=== PATIENT | male | born 1950 | race Caucasian/White ===

== ENCOUNTER 2018-04-15 17:47 | Inpatient (IN) | payer MEDICARE ==
[~2018-04-15] VITALS: Ht 167.6 cm; Wt 88.5 kg
--- NOTE | 2018-04-15 17:45 | NUR ---
Pt was brought in by private ambulance from [facility] ER where the patient was already medically cleared and placed on a 5150 Hold. the ER physician on duty at this time reviewed the transfer paperwork and stated the patient may be directly admitted to [facility] as there is no need for further tests.
[2018-04-15 18:00] VITALS: BP 160/85
[2018-04-15] MEDS ORDERED: ACETAMINOPHEN 325 MG TABLET PO PRN (18:15)
[2018-04-15] MEDS ORDERED: LORA-259 PO (18:20)
[2018-04-15] MEDS ORDERED: AMLO5TAB4 PO (18:20)
[2018-04-15] MEDS ORDERED: OXYC30TA2 PO (18:20)
[2018-04-15] MEDS ORDERED: MAG HYDROX/AL HYDROX/SIMETH 30 ML LIQUID UDC PO PRN (21:00)
[2018-04-15] MEDS ORDERED: MAGNESIUM HYDROXIDE 30 ML LIQUID UDC PO PRN (21:00)
[2018-04-15] MEDS: LORAZEPAM 1 MG TABLET PO PRN (21:11)
[2018-04-15] MEDS ORDERED: HYDROCODONE/APAP 10-325 MG TABLET PO PRN (21:15)
--- NOTE | 2018-04-15 21:28 | NUR ---
GPS: Pt.refused to have his vital signs taken especially his B/P despite explanation of importance. Reminded pt.that during admission earlier his B/P was elevated. Pt.continues to refuse. Also refusing Lopressor 25mg one time dose now. Pt.is guarded,uncooperative,refuses to interact with staff and easily irritable. Pt.insisting also that he takes 2mg of Ativan at home for anxiety but was explained to him that his order here in the hosp.is only 1 mg. Pt.decided to take Ativan 1mg as ordered. Safety emphasized.
[2018-04-15] MEDS ORDERED: METOPROLOL TARTRATE 25 MG TABLET PO ONE (21:30)
--- NOTE | 2018-04-15 23:45 | NUR ---
GPS: Noted pt.to be asleep at this time and undressed himself totally. Pt.was covered with a blanket for privacy.
--- NOTE | 2018-04-16 06:30 | NUR ---
GPS: Pt.refused blood works ordered for this morning despite explanation of importance. Pt.is easily irritable and prefers to be left alone at this time.
[2018-04-16] MEDS: AMLODIPINE 5 MG TABLET PO SCH ×3 (09:00→17:20)
[2018-04-16] MEDS: METOPROLOL TARTRATE 25 MG TABLET PO SCH ×3 (09:00→17:20)
[2018-04-16] MEDS: LORAZEPAM 1 MG TABLET PO PRN ×2 (10:03→13:19)
[2018-04-16 10:30] VITALS: BP 156/69
[2018-04-16 16:09] VITALS: BP 136/71
[2018-04-16] MEDS: CLONAZEPAM 0.5 MG TABLET PO SCH (17:20)
[2018-04-16 20:00] VITALS: BP 130/86
[2018-04-16] MEDS ORDERED: TRAZODONE 50 MG TABLET PO SCH (21:00)
[2018-04-16] MEDS: TEMAZEPAM 7.5 MG CAPSULE PO PRN (23:53)
[2018-04-17 00:16] LABS: *BILIRUBIN,URIN NEGATIVE (NEGATIVE); *BLOOD, URINE NEGATIVE (NEGATIVE); *CLARITY,URINE CLEAR (CLEAR); *COLOR,URINE YELLOW (YELLOW); *KETONES,URINE NEGATIVE (NEGATIVE); *PROTEIN,URINE NEGATIVE (NEGATIVE); *UROBILINOGEN,URINE 0.2 E.U./dl (NORMAL); LEUKOCYTE ESTERASE ,URINE NEGATIVE (NEGATIVE); NITRITE, URINE NEGATIVE (NEGATIVE); PH,URINE 5.5 (5.0-8.0); UGLUCOSE NEGATIVE (NEGATIVE)
[2018-04-17 00:32] LABS: BACTERIA,URINE NONE SEEN /HPF (NONE SEEN); RBC,URINE 0-3 /HPF (0-3); SQUAMOUS EPITHELIAL CELL,UR FEW /HPF (NONE SEEN); WBC,URINE 0-3 /HPF (0-3)
[2018-04-17 00:33] LABS: MUCUS,URINE FEW /LPF (0-FEW); TRANSITIONAL EPI CELLS,URINE FEW /LPF (NONE SEEN); URINE AMORPHOUS URATE FEW /HPF
[2018-04-17] MEDS: LORAZEPAM 1 MG TABLET PO PRN ×3 (05:54→22:00)
[2018-04-17 07:09] LABS: BASOPHILS # (AUTO) 0.1 K/uL (0.0-8.0); BASOPHILS % (AUTO) 1.3 % (0.0-2.0); EOSINOPHILS % (AUTO) 0.5 % (0.0-7.0); HEMATOCRIT 38.3 % (36.7-47.1); HEMOGLOBIN 12.7 g/dL (12.5-16.3); LYMPHOCYTES # (AUTO) 1.3 K/uL (20.0-40.0); MEAN CORPUSCULAR HEMOGLOBIN 27.8 uug (23.8-33.4); MEAN CORPUSCULAR HGB CONC 33 g/dL (32.5-36.3); MONOCYTES # (AUTO) 0.8 K/uL (2.0-10.0); MONOCYTES % (AUTO) 12.2 % (0.0-11.0); NEUTROPHILS # (AUTO) 4.1 K/uL (1.8-8.9); PLATELET COUNT (AUTO) 284 K/uL (152-348); RED BLOOD CELL COUNT(AUTO) 4.56 MIL/uL (4.06-5.63); WHITE BLOOD COUNT (AUTO) 6.3 K/uL (3.6-10.2)
[2018-04-17 07:23] LABS: BILIRUBIN,TOTAL 0.5 mg/dL (0.2-1.0); CREATININE 0.8 mg/dL (0.6-1.3); MAGNESIUM 1.9 mg/dL (1.8-2.4); PHOSPHOROUS 2.5 mg/dL (2.5-4.9); POTASSIUM 3.3 mmol/L (3.5-5.1); TOTAL PROTEIN, SERUM 7.1 g/dL (6.4-8.2)
[2018-04-17 07:30] VITALS: BP 130/67
[2018-04-17 07:55] LABS: THYROID STIMULATING HORMONE 0.327 mIU/mL (0.358-3.740)
--- NOTE | 2018-04-17 08:30 | NUR ---
Pt.in bed A/A/Ox3,no s/s of distress,denies pain @ time.
[2018-04-17] MEDS: CLONAZEPAM 0.5 MG TABLET PO SCH ×3 (08:32→17:00)
[2018-04-17] MEDS: METOPROLOL TARTRATE 25 MG TABLET PO SCH ×2 (08:33→17:02)
[2018-04-17] MEDS: AMLODIPINE 5 MG TABLET PO SCH ×2 (08:33→17:02)
[2018-04-17] MEDS ORDERED: DEXTROSE 50% 50 ML DISP.SYRIN IV PRN (10:30)
[2018-04-17] MEDS ORDERED: POTASSIUM CHLORIDE 20 MEQ TAB.PRT.SR PO ONE (10:30)
[2018-04-17] MEDS: BLOOD SUGAR DIAGNOSTIC 1 EACH STRIP VI SCH ×3 (11:46→20:03)
[2018-04-17 15:37] VITALS: BP 134/72
--- NOTE | 2018-04-17 15:37 | NUR ---
Initial Discharge Instructions: Patient was living in his friend, Lluvia, apartment prior to his hospitalization. Spoke with Nurys ([phone]) who reports that the patient cannot return to her place of residence when he is ready for discharge. Nurys refused to provide her address to this law writer. Per pt, he would like to return to his home in [place] when he is ready for discharge. CLAUDINE will speak with pt's friend, Scott ([phone]). CLAUDINE will collaborate with pt and MD regarding most appropriate discharge plans for this patient. SW will form a safe and proper discharge plan.
--- NOTE | 2018-04-17 17:07 | NUR ---
Pt.refuse from [facility],protesting that was placed on 14 days hold,but was agree to take meds.
[2018-04-17] MEDS: TRAZODONE 100 MG TABLET PO SCH (20:03)
[2018-04-17] MEDS: ATORVASTATIN 10 MG TABLET PO SCH (20:03)
[2018-04-18] MEDS: TEMAZEPAM 7.5 MG CAPSULE PO PRN ×2 (02:02→23:35)
--- NOTE | 2018-04-18 06:28 | NUR ---
GPS: Pt.refused to have blood sugar check at this time despite explanation of importance. Continues to feel depressed,irritable and guarded. Safety emphasized. Will continue to monitor.
[2018-04-18] MEDS: BLOOD SUGAR DIAGNOSTIC 1 EACH STRIP VI SCH ×4 (06:34→20:05)
[2018-04-18] MEDS: CLONAZEPAM 0.5 MG TABLET PO SCH ×3 (08:42→17:23)
[2018-04-18] MEDS: METOPROLOL TARTRATE 25 MG TABLET PO SCH ×2 (08:42→17:00)
[2018-04-18] MEDS: AMLODIPINE 5 MG TABLET PO SCH ×2 (08:42→17:00)
--- NOTE | 2018-04-18 10:18 | NUR ---
Discharge Planning Note: SW met with patient at bedside to discuss discharge planning. Informed the patient that his passport was here in the hospital and that SW received call from pt's friend Scott ([phone]) who states he has the rest of patient's belongings at his home. Patient aware. Patient reports that he would like to return to [place] upon discharge, and will pay for a taxi to get to [facility]. Patient plans to go to the hospital in [facility] where he has been treated several times in the past to "continue getting help" there. Patient reports he will contact his friend Scott to begin the process. CLAUDINE will continue to follow-up with pt and MD regarding a safe and proper discharge plan. Addendum: 04/18/18 at 1334 by GREGORY COHEN At 1300, CLAUDINE met with pt and friend Scott at bedside to discuss discharge planning. Pt's friend made aware of patient's plan to go to [place] post-discharge. Per friend, he will get in touch with pt's friend, Juan, in [place] to help facilitate transportation from airport in [facility] to the hospital. Pt agreeable. CLAUDINE will continue to follow-up and provide support to ensure a safe DC plan.
--- NOTE | 2018-04-18 16:09 | NUR ---
Discharge planning: During Pt discharge, Pt's personal medications, which were noted on Pt belongings log, could not be located. Pt became very anxious and upset over this issue. Meds were later located and given to Pt. Mental Health [employer]r, Salo Vasquez, was notified and an investigation will be taking place. Addendum: 04/19/18 at 0815 by ANKITA CHOW cut off worker entered note in wrong patient's chart.
[2018-04-18] MEDS: TRAZODONE 100 MG TABLET PO SCH (20:01)
[2018-04-18] MEDS: ATORVASTATIN 10 MG TABLET PO SCH (20:01)
[2018-04-18] MEDS: LORAZEPAM 1 MG TABLET PO PRN (22:00)
[2018-04-19] MEDS: LORAZEPAM 1 MG TABLET PO PRN (03:27)
[2018-04-19] MEDS: BLOOD SUGAR DIAGNOSTIC 1 EACH STRIP VI SCH ×4 (06:37→20:37)
[2018-04-19 07:30] VITALS: BP 169/100
[2018-04-19] MEDS: CLONAZEPAM 0.5 MG TABLET PO SCH ×3 (08:32→16:58)
[2018-04-19] MEDS: AMLODIPINE 5 MG TABLET PO SCH ×2 (08:33→16:58)
[2018-04-19] MEDS: METOPROLOL TARTRATE 25 MG TABLET PO SCH ×2 (08:33→16:58)
[2018-04-19 09:45] VITALS: BP 151/88
[2018-04-19] MEDS: INSULIN REGULAR, HUMAN 300 UNIT/3 ML VIAL SQ PRN (12:59)
--- NOTE | 2018-04-19 14:48 | NUR ---
Activity Group Note: Patients engaged in a [employer] activity where they were shown pictures and asked to tell a story about the picture or express how the picture made them feel. Patients were encouraged to reference their other senses such as smell, taste, hear, etc. Subjective: "I want to keep looking at pictures." Objective: Made good eye contact, sat forward in his seat, shared picture with others in group. Assessment: Patient seemed engaged in the activity. Patient's thought process was linear and goal-directed. Patient seemed able to relate pictures shown to his own life and to other works of art he has encountered. Patient encouraged other members of group to engage in activity as well. Plan: Continue to encourage attendance in activity groups as scheduled.
[2018-04-19 16:05] VITALS: BP 150/87
--- NOTE | 2018-04-19 17:55 | NUR ---
GERD IS CALM AND COOPERATIVE AT THIS TIME. SITTING IN FRONT OF THE NURSES' STATION HAVING CONVERSATION WITH NURSES. GERD HAD MENTIONED THAT UPON DISCHARGE, HE WANTS TO HAVE A TAXI VOUCHER TO GET TO HIS FRIENDS' HOUSE IN [place]. WILL CONTINUE TO MONITOR.
[2018-04-19 19:31] VITALS: BP 135/85
[2018-04-19] MEDS: ATORVASTATIN 10 MG TABLET PO SCH (20:36)
[2018-04-19] MEDS: TRAZODONE 100 MG TABLET PO SCH (20:36)
[2018-04-19] MEDS ORDERED: TRAZODONE 50 MG TABLET PO ONE (20:45)
[2018-04-19] MEDS: LOPERAMIDE HCL 2 MG CAPSULE PO PRN (20:53)
--- NOTE | 2018-04-19 21:30 | NUR ---
received to care, lying in bed, isolative, but pleasant upon approach. compliant with medications and staff direction. continues to deny suicidal ideation, or the desire to harm self. PRN immodium was given earlier, due to having multiple episodes of diarrhea throughout the calixto. stool specimen was collected, and sent to the lab. as of 2129, he remains in bed. no distress noted. will continue to monitor closely.
[2018-04-19] MEDS: TEMAZEPAM 7.5 MG CAPSULE PO PRN (22:00)
--- NOTE | 2018-04-19 22:00 | NUR ---
PRN restoril given, for insomnia. pt reports no further episodes of loose stools, or diarrhea.
[2018-04-20] MEDS: LORAZEPAM 1 MG TABLET PO PRN (02:48)
[2018-04-20] MEDS: BLOOD SUGAR DIAGNOSTIC 1 EACH STRIP VI SCH ×4 (07:24→20:29)
[2018-04-20 07:30] VITALS: BP 136/70
[2018-04-20] MEDS: CLONAZEPAM 0.5 MG TABLET PO SCH ×3 (08:40→17:52)
[2018-04-20] MEDS: METOPROLOL TARTRATE 25 MG TABLET PO SCH ×2 (08:41→17:53)
[2018-04-20] MEDS: AMLODIPINE 5 MG TABLET PO SCH ×2 (08:41→17:53)
[2018-04-20] MEDS: LOPERAMIDE HCL 2 MG CAPSULE PO PRN ×2 (12:01→21:00)
[2018-04-20 12:02] VITALS: BP 136/70
[2018-04-20 16:04] VITALS: BP 121/72
--- NOTE | 2018-04-20 19:45 | NUR ---
RECEIVED PATIENT IN THE DAY ROOM. HE IS NOTED A/O X 4 ABLE TO AMBULATE WITH STEADY GAIT AND ABLE TO MAKE HIS NEEDS KNOWN. PATIENT PRESENTS IS NOTED PLEASANT AND COOPERATIVE. DENIES AV/VH. DENIES SI AND HE IS ABLE TO CFS. HE IS AWARE OF INCOMING DISCHARGED. GOOD INSIGHT AND JUDGMENT NOTED. PATIENT ABLE TO VERBALIZED FEELINGS. SAFETY EMPHASIS. WILL CONTINUE TO MONITOR.
[2018-04-20 20:00] VITALS: BP 137/84
[2018-04-20] MEDS: ATORVASTATIN 10 MG TABLET PO SCH (20:28)
[2018-04-20] MEDS ORDERED: TRAZODONE 100 MG TABLET PO SCH (21:00)
--- NOTE | 2018-04-20 21:00 | NUR ---
PATIENT STATED THAT HE HAD FEW LOOSE STOOLS THIS MORNING, BUT NOTHING THIS AFTERNOON; HOWEVER, HE REQUESTED A DOSE OF IMODIUM BEFORE BEDTIME. IMODIUM 2MG PO PRN WAS PER PATIENT'S REQUEST AND NURSING ASSESSMENT. WILL CONTINUE TO MONITOR.
[2018-04-20] MEDS: TEMAZEPAM 7.5 MG CAPSULE PO PRN (22:00)
[2018-04-21] MEDS: LORAZEPAM 1 MG TABLET PO PRN (03:57)
[2018-04-21] MEDS: BLOOD SUGAR DIAGNOSTIC 1 EACH STRIP VI SCH ×2 (07:30→11:38)
--- NOTE | 2018-04-21 07:55 | NUR ---
Discharge Note: Patient will be discharged to his own care, and will be transported to [place] [address] where he has a reservation [facility] [place] [address]; ] via taxi at 3:30pm. Patient is aware that taxi voucher is only for first 10 miles to [[address] [place] [address]] and then patient will call for another taxi to take him to [place] [address]. Patient is aware and agreeable with this plan. Patient has a flight to return to [facility] on 04/24/18 at 6pm. Patient then plans to follow up with his Primary Doctor, Professor Dr. Valentin Grossman, Chief Physician of [facility] [phone]; direct [phone]). Patient was referred to [facility] for [employer] referrals ([phone]). Patient was provided with outpatient mental health resources to [facility] , Vickie Bradley , and the National Suicide Prevention Lifeline . Patient was provided with a brief substance abuse intervention and referred to [facility] , [facility] Arevalo , and [facility] . Patient also plans to [facility] an [facility] [address] [place] [address]; [phone]] to address is substance use dependency.
[2018-04-21] MEDS: METOPROLOL TARTRATE 25 MG TABLET PO SCH (08:08)
[2018-04-21] MEDS: AMLODIPINE 5 MG TABLET PO SCH (08:08)
[2018-04-21] MEDS: CLONAZEPAM 0.5 MG TABLET PO SCH ×2 (08:08→12:02)
[2018-04-21 08:36] VITALS: BP 154/92
[2018-04-21] MEDS: INSULIN REGULAR, HUMAN 300 UNIT/3 ML VIAL SQ PRN (11:38)
--- NOTE | 2018-04-21 13:53 | NUR ---
Pt refuses exitcare instructions on depression, suicidality, smoking cessation, and alcohol abuse. States none of those apply.
[2018-04-21 15:00] VITALS: BP 140/82
[2018-04-21 15:03] VITALS: BP 140/82
--- NOTE | 2018-04-21 15:30 | NUR ---
Pt left unit on w/c accompanied by RN and TREE EXPERT to taxi with taxi voucher. Left with all belongings and paperwork. Denies pain or discomfort. Vehemently denies and SI. No aggressive or combative behavior. Able to make all needs known.
== END 2018-04-21 13:30 | disposition home or self-care (01) | DRG 881 ==
LOC: GPS 17:47
PROVIDERS: ADMIT Psychiatry & Neurology Psychiatry; ATTEND Internal Medicine
DX: F32.9 Major depressive disorder, single episode, unspecified (principal); E11.65 Type 2 diabetes mellitus with hyperglycemia; R45.851 Suicidal ideations; F41.9 Anxiety disorder, unspecified; I10 Essential (primary) hypertension; E66.9 Obesity, unspecified; E78.5 Hyperlipidemia, unspecified; E87.6 Hypokalemia; Z68.31 Body mass index [BMI] 31.0-31.9, adult; Z91.5 Personal history of self-harm
CPT/HCPCS: 36415; 82306; 83735; 84100; 84443; 85025; 87086; J1815